=== PATIENT | female | born 1935 | race Caucasian/White ===

== ENCOUNTER 2020-12-30 19:25 | Day surgery (SDCO) | payer MEDICARE, OTHER ==
[~2020-12-30] VITALS: Ht 160 cm; Wt 72.7 kg
[~2020-12-30 19:25] MED LIST: ALENDRONATE SOD70 MG PO; ATENOLOL25 MG PO; BACTRIM DS TAB1 EACH PO; CEFDINIR300 MG PO; COZAAR100 MG PO; DOK100 MG PO; HYDROCODON-ACE1 EAC4 PO; MEGACE ORA6 TSP/1 OZ PO; NAMENDA 10MG TA10 MG PO; PRILOSEC20 MG PO; THERA M PLUS T1 EACH PO; TORSEMIDE20 MG PO
[2020-12-30 20:47] LABS: BASOPHIL 0.7 % (0-2); HCT 43.4 % (37.0-47.0); LYMPHOCYTE 32.4 % (15-48); MCH 31.7 pg (25.0-31.0); MCHC 32.3 g/dL (32.0-36.0); MCV 98.2 fL (78.0-100.0); MONOCYTE 7.4 % (0-12); MPV 10.8 fL (6.0-9.5); NEUTROPHIL 53.3 % (41-80); NRBC 0; PLT 173 K/uL (150-400); RBC 4.42 M/uL (4.20-5.40); WBC 8.6 K/uL (4.0-10.5)
[2020-12-30 21:11] LABS: PRO-BNP 676 pg/mL (<450)
[2020-12-30 21:16] LABS: INR 1.08 (0.9-1.2); PROTHROMBIN TIME 13.3 SECONDS (11.4-13.6)
[2020-12-30 21:30] LABS: ALBUMIN 3.1 g/dL (3.4-5.0); BILIRUBIN - TOTAL 0.4 mg/dL (0.2-1.0); BUN/CREAT RATIO (CALC) 23.8 RATIO; CREATININE 1.01 mg/dL (0.51-0.95); GLOBULIN (CALCULATION) 4.6 g/dL; POTASSIUM 3.4 mmol/L (3.5-5.1); TOTAL PROTEIN 7.7 g/dL (6.4-8.2)
[2020-12-30 21:51] LABS: LACTIC ACID 1.5 mmol/L (0.4-1.9)
[2020-12-30 22:32] LABS: BILIRUBIN NEGATIVE (NEGATIVE); BLOOD NEGATIVE Ery/uL (NEGATIVE); CLARITY CLEAR (CLEAR); COLOR YELLOW (YELLOW); GLUCOSE (U) NORMAL (NORMAL); LEUKOCYTES NEGATIVE Leu/uL (NEGATIVE); NITRITE NEGATIVE (NEGATIVE); PROTEIN NEGATIVE (NEGATIVE); UROBILINOGEN 0.2 mg/dL (0.2-1.0)
[2020-12-31 12:11] LABS: CREATININE 0.87 mg/dL (0.51-0.95); POTASSIUM 3.5 mmol/L (3.5-5.1)
[2020-12-31 18:56] LABS: BUN/CREAT RATIO (CALC) 27.3 RATIO; CREATININE 0.88 mg/dL (0.51-0.95); POTASSIUM 4.2 mmol/L (3.5-5.1)
[2021-01-01 06:35] LABS: BUN/CREAT RATIO (CALC) 22.9 RATIO; CREATININE 0.83 mg/dL (0.51-0.95); MAGNESIUM 2.1 mg/dL (1.8-2.4)
[2021-01-01 06:37] LABS: BASOPHIL 0.7 % (0-2); HCT 36.3 % (37.0-47.0); HGB 12.1 g/dl (12.5-16.0); LYMPHOCYTE 26.6 % (15-48); MCH 32.3 pg (25.0-31.0); MCHC 33.3 g/dL (32.0-36.0); MCV 96.8 fL (78.0-100.0); MONOCYTE 6.9 % (0-12); MPV 10.4 fL (6.0-9.5); NEUTROPHIL 59.3 % (41-80); NRBC 0; PLT 185 K/uL (150-400); RBC 3.75 M/uL (4.20-5.40); WBC 8.3 K/uL (4.0-10.5)
== END 2021-01-01 18:07 | disposition home health service (06) ==
LOC: FER 19:25 → FMS 12-31 03:24
PROVIDERS: Emergency Medicine; Hospitalist; Internal Medicine; ADMIT Hospitalist
DX: E87.0 Hyperosmolality and hypernatremia (principal); E86.0 Dehydration; N17.9 Acute kidney failure, unspecified; I11.0 Hypertensive heart disease with heart failure; I50.9 Heart failure, unspecified; G93.41 Metabolic encephalopathy; F03.90 Unspecified dementia, unspecified severity, without behavioral disturbance, psychotic disturbance, mood disturbance, and anxiety; K21.9 Gastro-esophageal reflux disease without esophagitis; E87.6 Hypokalemia; M81.0 Age-related osteoporosis without current pathological fracture; K44.9 Diaphragmatic hernia without obstruction or gangrene; J98.11 Atelectasis; Z79.83 Long term (current) use of bisphosphonates; Z79.899 Other long term (current) drug therapy; Z20.822 Contact with and (suspected) exposure to COVID-19
CPT/HCPCS: 36415; 70450; 71045; 80048; 80053; 81003; 83605; 83735; 83880; 84100; 84484; 85025; 85610; 87040; 93005; 94640; G0378; J1650; J3480; J7030; J7070; U0002

== ENCOUNTER 2021-05-20 14:24 | Inpatient (IN) | payer MEDICARE, OTHER ==
[~2021-05-20] VITALS: Ht 162.6 cm; Wt 73.1 kg
[2021-05-20 14:56] LABS: BILIRUBIN NEGATIVE (NEGATIVE); BLOOD 3+ Ery/uL (NEGATIVE); CLARITY CLEAR (CLEAR); COLOR YELLOW (YELLOW); GLUCOSE (U) NORMAL (NORMAL); LEUKOCYTES NEGATIVE Leu/uL (NEGATIVE); NITRITE NEGATIVE (NEGATIVE); PROTEIN NEGATIVE (NEGATIVE); SPECIFIC GRAVITY 1.015 (1.001-1.030); UROBILINOGEN 0.2 mg/dL (0.2-1.0); pH 6.5 (5.0-9.0)
[2021-05-20 14:57] LABS: BASOPHIL 0.6 % (0-2); EOSINOPHIL 2.4 % (0-7); HCT 42.2 % (37.0-47.0); HGB 13.6 g/dl (12.5-16.0); LYMPHOCYTE 12.7 % (15-48); MCH 31.3 pg (25.0-31.0); MCHC 32.2 g/dL (32.0-36.0); MCV 97.2 fL (78.0-100.0); MONOCYTE 9.8 % (0-12); NEUTROPHIL 73.5 % (41-80); NRBC 0; PLT 147 K/uL (150-400); RBC 4.34 M/uL (4.20-5.40); RDW 13.4 % (11.5-14.0)
[2021-05-20 15:07] LABS: BACTERIA 1+
[2021-05-20 15:22] LABS: ALBUMIN 3.2 g/dL (3.4-5.0); BILIRUBIN - TOTAL 0.4 mg/dL (0.2-1.0); BUN/CREAT RATIO (CALC) 18.3 RATIO; CREATININE 1.31 mg/dL (0.51-0.95); GLOBULIN (CALCULATION) 4.3 g/dL; POTASSIUM 3.8 mmol/L (3.5-5.1); TOTAL PROTEIN 7.5 g/dL (6.4-8.2)
[2021-05-20] MEDS ORDERED: LEVOTHYROXINE75 MC1 PO (19:55)
[2021-05-20] MEDS ORDERED: POTASSIUM CHLO10 ME1 PO (19:56)
[2021-05-20] MEDS ORDERED: MEMANTINE HCL10 MG PO (19:56)
[2021-05-20] MEDS ORDERED: DEMADEX20 MG PO (19:57)
[2021-05-20] MEDS ORDERED: DONEPEZIL HCL10 MG PO (19:59)
[2021-05-20] MEDS ORDERED: OMEPRAZOLE 20MG20 MG PO (20:01)
[2021-05-20] MEDS ORDERED: THERA M PLUS T1 EACH PO (20:04)
[2021-05-20] MEDS ORDERED: PHOSLO667 MG PO (20:06)
[2021-05-21 05:35] LABS: BASOPHIL 0.7 % (0-2); EOSINOPHIL 1.2 % (0-7); HCT 38.7 % (37.0-47.0); HGB 12.4 g/dl (12.5-16.0); LYMPHOCYTE 16.8 % (15-48); MCH 31.2 pg (25.0-31.0); MCV 97.5 fL (78.0-100.0); MONOCYTE 12.3 % (0-12); MPV 11.2 fL (6.0-9.5); NEUTROPHIL 68.1 % (41-80); NRBC 0; PLT 143 K/uL (150-400); RBC 3.97 M/uL (4.20-5.40); RDW 13.6 % (11.5-14.0); WBC 6.8 K/uL (4.0-10.5)
[2021-05-21 05:56] LABS: ALBUMIN 2.8 g/dL (3.4-5.0); BILIRUBIN - TOTAL 0.4 mg/dL (0.2-1.0); BUN/CREAT RATIO (CALC) 20.2 RATIO; CREATININE 1.09 mg/dL (0.51-0.95); GLOBULIN (CALCULATION) 4.1 g/dL; POTASSIUM 3.7 mmol/L (3.5-5.1); TOTAL PROTEIN 6.9 g/dL (6.4-8.2)
[2021-05-22 06:38] LABS: BASOPHIL 0.2 % (0-2); EOSINOPHIL 0 % (0-7); HCT 38.1 % (37.0-47.0); HGB 12.6 g/dl (12.5-16.0); LYMPHOCYTE 26.6 % (15-48); MCH 31.5 pg (25.0-31.0); MCHC 33.1 g/dL (32.0-36.0); MCV 95.3 fL (78.0-100.0); NEUTROPHIL 63.5 % (41-80); NRBC 0; PLT 118 K/uL (150-400); RDW 13.1 % (11.5-14.0); WBC 4.4 K/uL (4.0-10.5)
[2021-05-22 06:55] LABS: ALBUMIN 2.3 g/dL (3.4-5.0); BILIRUBIN - TOTAL 0.3 mg/dL (0.2-1.0); BUN/CREAT RATIO (CALC) 23.5 RATIO; CREATININE 0.68 mg/dL (0.51-0.95); GLOBULIN (CALCULATION) 3.8 g/dL; MAGNESIUM 2.1 mg/dL (1.8-2.4); PHOSPHORUS 3.6 mg/dL (2.6-4.7); POTASSIUM 3.7 mmol/L (3.5-5.1); TOTAL PROTEIN 6.1 g/dL (6.4-8.2)
--- NOTE | 2021-05-22 16:22 | NUR ---
PER JAMES, I ATTEMPTED TO CONTACT SPOUSE TO SEE IF HE HAS ANY RESOURCES IN THE HOME. THERE WAS NO ANSWER, SO I ATTEMPTED TO CALL THE PERSON TO NOTIFY, RANDEE ABARCASSER, WHO IS PT SISTER IN LAW. THERE WAS NO ANSWER, BUT LEFT A MESSAGE TO CONTACT ME.
[2021-05-23 06:09] LABS: BASOPHIL 0 % (0-2); EOSINOPHIL 0 % (0-7); HCT 36.7 % (37.0-47.0); HGB 12.4 g/dl (12.5-16.0); LYMPHOCYTE 28.5 % (15-48); MCH 31.5 pg (25.0-31.0); MCHC 33.8 g/dL (32.0-36.0); MCV 93.1 fL (78.0-100.0); MONOCYTE 8.9 % (0-12); NEUTROPHIL 61.9 % (41-80); NRBC 0; PLT 140 K/uL (150-400); RBC 3.94 M/uL (4.20-5.40); WBC 5.5 K/uL (4.0-10.5)
[2021-05-23 06:44] LABS: BUN/CREAT RATIO (CALC) 22.7 RATIO; CREATININE 0.66 mg/dL (0.51-0.95); POTASSIUM 3.4 mmol/L (3.5-5.1)
[2021-05-24 07:10] LABS: BASOPHIL 0.2 % (0-2); EOSINOPHIL 0 % (0-7); HCT 36.1 % (37.0-47.0); LYMPHOCYTE 30.6 % (15-48); MCH 30.8 pg (25.0-31.0); MCHC 33.2 g/dL (32.0-36.0); MCV 92.6 fL (78.0-100.0); MPV 10.7 fL (6.0-9.5); NEUTROPHIL 60.7 % (41-80); NRBC 0; RDW 13.1 % (11.5-14.0); WBC 6.3 K/uL (4.0-10.5)
[2021-05-24 07:19] LABS: PLT 143 K/uL (150-400)
[2021-05-24 07:37] LABS: ALBUMIN 2.5 g/dL (3.4-5.0); BILIRUBIN - TOTAL 0.3 mg/dL (0.2-1.0); BUN/CREAT RATIO (CALC) 22.1 RATIO; CREATININE 0.68 mg/dL (0.51-0.95); GLOBULIN (CALCULATION) 3.4 g/dL; POTASSIUM 3.6 mmol/L (3.5-5.1); TOTAL PROTEIN 5.9 g/dL (6.4-8.2)
[2021-05-24] MEDS ORDERED: DEMADEX20 MG PO (08:32)
[2021-05-24] MEDS ORDERED: NORVASC5 MG PO (08:32)
[2021-05-24] MEDS ORDERED: DEXAMETHASONE 2M2 MG PO (08:48)
== END 2021-05-24 11:35 | disposition home or self-care (01) | DRG 177 ==
LOC: FER 14:24 → FMS 18:10
PROVIDERS: Allergy & Immunology Allergy; Family Medicine; Internal Medicine; ADMIT Internal Medicine
PROC: 8E0ZXY6 Isolation (ICD-10-PCS; principal; 2021-05-20)
PROC: XW033G6 Introduction of REGN-COV2 Monoclonal Antibody into Peripheral Vein, Percutaneous Approach, New Technology Group 6 (ICD-10-PCS; 2021-05-20)
DX: U07.1 COVID-19 (principal); J96.01 Acute respiratory failure with hypoxia; G92.8 Other toxic encephalopathy; N17.9 Acute kidney failure, unspecified; D69.6 Thrombocytopenia, unspecified; I10 Essential (primary) hypertension; Z23 Encounter for immunization; F03.90 Unspecified dementia, unspecified severity, without behavioral disturbance, psychotic disturbance, mood disturbance, and anxiety; K21.9 Gastro-esophageal reflux disease without esophagitis; M81.0 Age-related osteoporosis without current pathological fracture; K44.9 Diaphragmatic hernia without obstruction or gangrene; Z86.73 Personal history of transient ischemic attack (TIA), and cerebral infarction without residual deficits; Z90.49 Acquired absence of other specified parts of digestive tract; Z98.890 Other specified postprocedural states; Z83.3 Family history of diabetes mellitus; Z82.49 Family history of ischemic heart disease and other diseases of the circulatory system
CPT/HCPCS: 36415; 36600; 70450; 71045; 80048; 80053; 81001; 82728; 82803; 83735; 84100; 84484; 85025; 85379; 93005; 97163; 97166; 97530-GP; 97535; J0360; J1650; J3480; J7040; J7120; J8540; Q0244; U0002

== ENCOUNTER 2022-02-12 14:02 | Day surgery (SDCO) | payer MEDICARE, OTHER ==
[~2022-02-12] VITALS: Ht 154.9 cm; Wt 62.8 kg
[~2022-02-12 14:02] MED LIST changes: +DEMADEX20 MG PO; +DEXAMETHASONE 2M2 MG PO; +DOK100 M1 PO; -DOK100 MG PO; +DONEPEZIL HCL10 MG PO; +FOSAMAX70 MG PO; +K-TAB ER20 MEQ PO; +LEVOTHYROXINE75 MC1 PO; +MACROBID100 MG PO; +MEMANTINE HCL10 MG PO; +NORVASC5 MG PO; +OMEPRAZOLE 20MG20 MG PO; +PHOSLO667 MG PO; +POTASSIUM CHLO10 ME1 PO
[2022-02-12 15:21] LABS: BASOPHIL 0.7 % (0-2); EOSINOPHIL 3.9 % (0-7); HCT 48.5 % (37.0-47.0); LYMPHOCYTE 22.4 % (15-48); MCH 31.4 pg (25.0-31.0); MCV 95.1 fL (78.0-100.0); MONOCYTE 7.8 % (0-12); MPV 10.7 fL (6.0-9.5); NEUTROPHIL 64.5 % (41-80); NRBC 0; PLT 193 K/uL (150-400); RDW 13.8 % (11.5-14.0); WBC 8.2 K/uL (4.0-10.5)
[2022-02-12 15:22] LABS: BILIRUBIN NEGATIVE (NEGATIVE); BLOOD NEGATIVE Ery/uL (NEGATIVE); CLARITY CLEAR (CLEAR); COLOR YELLOW (YELLOW); GLUCOSE (U) NORMAL (NORMAL); LEUKOCYTES TRACE Leu/uL (NEGATIVE); NITRITE NEGATIVE (NEGATIVE); PROTEIN NEGATIVE (NEGATIVE); SPECIFIC GRAVITY <=1.005 (1.001-1.030); UROBILINOGEN 0.2 mg/dL (0.2-1.0); pH 6.5 (5.0-9.0)
[2022-02-12 15:41] LABS: ALBUMIN 3.6 g/dL (3.4-5.0); BILIRUBIN - TOTAL 0.6 mg/dL (0.2-1.0); CREATININE 1.21 mg/dL (0.51-0.95); GLOBULIN (CALCULATION) 4.4 g/dL; POTASSIUM 4.1 mmol/L (3.5-5.1)
[2022-02-12 16:02] LABS: BACTERIA TRACE; URINARY RBC RARE
[2022-02-12] MEDS ORDERED: DEMADEX20 MG PO (23:19)
[2022-02-13 05:59] LABS: BASOPHIL 0.7 % (0-2); EOSINOPHIL 3.3 % (0-7); HCT 36.4 % (37.0-47.0); LYMPHOCYTE 25.8 % (15-48); MCH 31.4 pg (25.0-31.0); MCV 95.3 fL (78.0-100.0); MONOCYTE 7.7 % (0-12); MPV 10.8 fL (6.0-9.5); NEUTROPHIL 61.6 % (41-80); NRBC 0; PLT 159 K/uL (150-400); RBC 3.82 M/uL (4.20-5.40); RDW 13.7 % (11.5-14.0); WBC 7.7 K/uL (4.0-10.5)
[2022-02-13 06:29] LABS: CREATININE 0.92 mg/dL (0.51-0.95); POTASSIUM 3.6 mmol/L (3.5-5.1)
--- NOTE | 2022-02-13 14:01 | NUR ---
02/13/22 Ms. Marie lives alone with her spouse. [facility] is current and have been notified of admission. Ms. Marie has a hospital bed, wc, recliner and 3in1. Three different caegivers come to home home throughout the day. - Meals were provided for Mr. Marie for dinner and breakfast. He was advised to notify this social contact worker if additional meals would be beneficial.
[2022-02-14] MEDS ORDERED: LEVAQUIN500 MG PO (12:06)
== END 2022-02-14 14:55 | disposition home or self-care (01) ==
LOC: FER 14:02 → FMS 17:47
PROVIDERS: Emergency Medicine; Nurse Practitioner; ADMIT Internal Medicine
DX: N30.00 Acute cystitis without hematuria (principal); G92.8 Other toxic encephalopathy; F03.90 Unspecified dementia, unspecified severity, without behavioral disturbance, psychotic disturbance, mood disturbance, and anxiety; I11.0 Hypertensive heart disease with heart failure; I50.9 Heart failure, unspecified; K21.9 Gastro-esophageal reflux disease without esophagitis; E03.9 Hypothyroidism, unspecified; Z20.822 Contact with and (suspected) exposure to COVID-19
CPT/HCPCS: 36415; 80048; 80053; 81001; 83605; 84145; 85025; G0378; J0696; J1650; J7030; U0002